=== PATIENT | male | born 1965 | race Caucasian/White ===

== ENCOUNTER 2021-07-03 18:02 | Emergency (ER) | payer OTHER ==
[~2021-07-03] VITALS: Ht 177.8 cm; Wt 95.3 kg
[2021-07-03 18:03] VITALS: BP 162/107
[2021-07-03 20:18] LABS: ABSOLUTE NEUTROPHILS 7.1 thou/uL (1.4-8.2); BASOPHILS 0.8 % (0.0-2.0); CALCIUM 9.6 mg/dL (8.5-10.1); CREATININE 2.2 mg/dL (0.7-1.3); EOSINOPHILS 0.4 % (0.0-3.0); HEMATOCRIT 42.3 % (42.0-52.0); HEMOGLOBIN 14.6 gm/dL (14.0-18.0); LYMPHOCYTES 14.6 % (24.0-44.0); MCH 30.8 pg (26.0-34.0); MCHC 34.4 g/dL (28.0-37.0); MCV 89.6 fL (80.0-100.0); MONOCYTES 9.4 % (1.0-8.0); PLATELET COUNT 263 thou/uL (150-400); POLYS 74.8 % (36.0-66.0); POTASSIUM 3.7 mmol/L (3.5-5.1); RBC 4.72 mil/uL (4.50-6.00); WBC 9.5 thou/uL (4.0-11.0)
[2021-07-03 20:25] LABS: ALBUMIN 3.7 g/dL (3.4-5.0); TOTAL PROTEIN 7.7 g/dL (6.4-8.2)
[2021-07-03 21:33] LABS: URINE BILIRUBIN NEGATIVE (Negative); URINE BLOOD 2+ (Negative); URINE COLOR YELLOW; URINE GLUCOSE-RANDOM* 1+ (Negative); URINE KETONES NEGATIVE (Negative); URINE LEUKOCYTES-REFLEX NEGATIVE (Negative); URINE NITRITE-REFLEX NEGATIVE (Negative); URINE PROTEIN (DIPSTICK) 3+ (Negative); URINE SPECIFIC GRAVITY 1.025 (1.005-1.035); URINE UROBILINOGEN 0.2 E.U./dl (0.2-1.0)
[2021-07-03 21:44] LABS: SQUAMOUS 0-3 Few /LPF (0-3)
[2021-07-03 21:45] LABS: HYALINE CASTS 0-3 Few /LPF (None Seen); URINE CLARITY CLEARH
[2021-07-03 21:46] LABS: BACTERIA-REFLEX 1-9 Few /HPF (None Seen); URINE RBC 1-2 Rare /HPF (NONE SEEN); URINE WBC-REFLEX 0-5 Rare /HPF (0-5)
[2021-07-03 21:47] LABS: CRYSTALS None Seen /LPF (None Seen)
[2021-07-04] MEDS ORDERED: PRILOSEC OTC20 MG PO (02:03)
[2021-07-04] MEDS ORDERED: CARAFATE1 GM PO (02:11)
--- NOTE | 2021-07-04 10:24 | EKG ---
[place] [address] [address] [facility] [place] [address] ELECTROCARDIOGRAM REPORT Name: HARVINDER FRANCISCO Room #: OG Irizarry#: [id number] Admission: 07/03/21 Attend Phys: Discharge: 07/04/21 Date of : 69 Report #: [id number] [facility] ED Test Date: 2021-07-04 Test Time: 00:23:23 Pat Name: HARVINDER FRANCISCO Department: Room: Gender: M [employer]: Eh Umaña : 1965 Requested By: Nic Mayen Order Number: [id number] MD: Elmer Perales Measurements Intervals [place] Rate: 88 P: 57 CO: 215 QRS: 10 QRSD: 87 T: -36 QT: 400 QTc: 484 Interpretive Statements Sinus rhythm Prolonged CO interval Probable left atrial enlargement Nonspecific T abnormalities, diffuse leads Borderline prolonged QT interval No previous ECG available for comparison Electronically Signed On 07-04-2021 10:24:34 [employer] by Elmer Perales [email or web address] <ELECTRONICALLY SIGNED> By: Elmer Perales MD, [facility] 07/04/21 1024 0023 0023 Elmer Perales MD, FACKeo /EPI
== END 2021-07-04 02:21 | disposition home or self-care (01) ==
LOC: ER 18:02
PROVIDERS: Emergency Medicine
DX: R10.13 Epigastric pain (principal); E11.9 Type 2 diabetes mellitus without complications